=== PATIENT | female | born 1955 | race Caucasian/White ===

== ENCOUNTER 2018-02-21 19:10 | Emergency (ER) | payer OTHER ==
[2018-02-21] MEDS ORDERED: HYDROCODONE/APAP 5/325 MG TAB ONE (20:12)
[2018-02-21] MEDS ORDERED: ONDANSETRON 4 MG (ODT) TAB ONE (20:15)
--- NOTE | 2018-02-21 20:50 | RAD REPORT ---
EXAM DESCRIPTION: RAD - Wrist Right 3 View - 02/21/2018 8:14 pm CLINICAL HISTORY: Fall, wrist pain COMPARISON: None. FINDINGS: No gross fracture deformity seen. There is no dislocation or periosteal reaction noted. De generative cystic changes are seen in the carpal bones. No foreign body or other soft tissue abnormal ity. IMPRESSION: No gross fracture deformity seen.
--- NOTE | 2018-02-21 21:27 | EDPHYS ---
Physician Documentation [facility] Name: Jessica Latham Age: 62 yrs Sex: Female : 1955 Arrival Date: 02/21/2018 Time: 19:11 Bed 4 Private MD: ED Physician Beni Alexander HPI: 02/21 21:00 This 62 yrs old Female presents to ER via EMS with complaints of Fall Injury. pm1 21:00 Details of fall: The patient fell from an upright position, while standing. Onset: The pm1 symptoms/episode began/occurred just prior to arrival. Associated injuries: The patient sustained right wrist. Severity of symptoms: in the emergency department the symptoms are actually worse. The patient has not experienced similar symptoms in the past. The patient has not recently seen a physician. Patient fell while trying to kick a rodent and slipped. Patient with right wrist pain and splinted by EMS prior to arrival. Historical: - Allergies: 19:14 No Known Allergies; sv - Home Meds: 19:14 Aspirin Oral [Active]; unk blood thinner [Active]; sv - PMHx: 19:14 enlarged heart; fluid around heart; sv - Immunization history:: Adult Immunizations Last tetanus immunization: < 5 years ago Flu vaccine is up to date. - Social history:: Smoking status: unknown. - Ebola Screening: : Patient negative for fever greater than or equal to 101.5 degrees Fahrenheit, and additional compatible Ebola Virus Disease symptoms Patient denies exposure to infectious person Patient denies travel to an Ebola-affected area in the 21 days before illness onset. ROS: 21:00 Constitutional: Negative for fever, chills, and weight loss, Eyes: Negative for injury, pm1 pain, redness, and discharge, ENT: Negative for injury, pain, and discharge, Neck: Negative for injury, pain, and swelling, Cardiovascular: Negative for chest pain, palpitations, and edema, Respiratory: Negative for shortness of breath, cough, wheezing, and pleuritic chest pain, Abdomen/GI: Negative for abdominal pain, nausea, vomiting, diarrhea, and constipation, Back: Negative for injury and pain. 21:00 Skin: Negative for injury, rash, and discoloration, Neuro: Negative for headache, weakness, numbness, tingling, and seizure. 21:00 MS/extremity: Positive for pain, of the right wrist, Negative for deformity. Exam: 21:00 Constitutional: This is a well developed, well nourished patient who is awake, alert, pm1 and in no acute distress. Head/Face: Normocephalic, atraumatic. Eyes: Pupils equal round and reactive to light, extra-ocular motions intact. Lids and lashes normal. Conjunctiva and sclera are non-icteric and not injected. Cornea within normal limits. Periorbital areas with no swelling, redness, or edema. ENT: Nares patent. No nasal discharge, no septal abnormalities noted. Tympanic membranes are normal and external auditory canals are clear. Oropharynx with no redness, swelling, or masses, exudates, or evidence of obstruction, uvula midline. Mucous membranes moist. Neck: Trachea midline, no thyromegaly or masses palpated, and no cervical lymphadenopathy. Supple, full range of motion without nuchal rigidity, or vertebral point tenderness. No Meningismus. Chest/axilla: Normal chest wall appearance and motion. Nontender with no deformity. No lesions are appreciated. Cardiovascular: Regular rate and rhythm with a normal S1 and S2. No gallops, murmurs, or rubs. Normal PMI, no JVD. No pulse deficits. Respiratory: Lungs have equal breath sounds bilaterally, clear to auscultation and percussion. No rales, rhonchi or wheezes noted. No increased work of breathing, no retractions or nasal flaring. Abdomen/GI: Soft, non-tender, with normal bowel sounds. No distension or tympany. No guarding or rebound. No evidence of tenderness throughout. Back: No spinal tenderness. No costovertebral tenderness. Full range of motion. Skin: Warm, dry with normal turgor. Normal color with no rashes, no lesions, and no evidence of cellulitis. 21:00 Musculoskeletal/extremity: Extremities: grossly normal except: noted in the right wrist: tenderness. 21:00 Neuro: Orientation: is normal, Motor: is normal, moves all fours, strength is 5/5 in all extremities, Sensation: is normal, no obvious gross deficits. Vital Signs: 19:34 BP 114 / 79; Pulse 98; Resp 18; Temp 98.0; Pulse Ox 95% ; Weight 73.48 kg; Height 5 ft. tl3 5 in. (165.10 cm); Pain 10/10; 21:10 BP 116 / 76; Pulse 79; Resp 18; Pulse Ox 99% on R/A; Pain 0/10; ao 19:34 Body Mass Index 26.96 (73.48 kg, 165.10 cm) tl3 [place] Coma Score: 20:21 Eye Response: spontaneous(4). Verbal Response: oriented(5). Motor Response: obeys ao commands(6). Total: 15. Trauma Score (Adult): 20:21 Eye Response: spontaneous(1); Verbal Response: oriented(1); Motor Response: obeys ao commands(2); Systolic BP: > 89 mm Hg(4); Respiratory Rate: 10 to 29 per min(4); Iram Score: 15; Trauma Score: 12 Procedures: 22:00 Splinting: Splint applied to right wrist using wrist splint, applied by nurse. Examined pm1 by me, post splint application: neurovascular intact, 2+ distal pulses palpable, brisk capillary refill noted, Patient tolerated well. MDM: 19:51 Patient medically screened. pm1 21:26 Data reviewed: vital signs. Data interpreted: Pulse oximetry: on room air is 99 %. pm1 Interpretation: normal. Counseling: I had a detailed discussion with the patient and/or guardian regarding: the historical points, exam findings, and any diagnostic results supporting the discharge/admit diagnosis, radiology results, the need for outpatient follow up, a orthopedic surgeon, to return to the emergency department if symptoms worsen or persist or if there are any questions or concerns that arise at home. 02/21 19:17 Order name: Wrist Right 3 View XRAY; Complete Time: 20:55 tw4 02/21 20:55 Order name: Wrist Splint; Complete Time: 21:13 pm1 02/21 21:13 Order name: Sling; Complete Time: 21:14 ao Administered Medications: 20:15 Drug: [place] 5 mg-325 mg 1 tabs Route: PO; ao 21:14 Follow up: Response: No adverse reaction ao 20:15 Drug: Zofran 4 mg Route: PO; ao 21:13 Follow up: Response: No adverse reaction ao Disposition: 22:54 Co-signature as Attending Physician, Beni Alexander MD I agree with the assessment and tw4 plan of care. Disposition: 02/21/18 21:27 Discharged to Home. Impression: Unspecified sprain of right wrist. - Condition is Stable. - Discharge Instructions: Wrist Pain, Wrist Splint. - Prescriptions for Tylenol- Codeine #3 300-30 mg Oral Tablet - take 2 tablets by ORAL route every 6 hours As needed; 20 tablet. - Medication Reconciliation Form, Thank You Letter, Prescription Opioid Use form. - Follow up: Emergency Department; When: As needed; Reason: Worsening of condition. Follow up: John Hatch MD; When: 2 - 3 days; Reason: Recheck today's complaints, Continuance of care, Re-evaluation by your physician. - Problem is new. - Symptoms have improved. Signatures: Dispatcher [employer] EDElisa Manzano, RN RN Logan Lugo RN RN ao Trip Trammell, TRANSPORTATION PLANNING ENGINEER TRANSPORTATION PLANNING ENGINEER pm1 Beni Alexander MD MD tw4 Gorge Flores RN RN rv Corrections: (The following items were deleted from the chart) 21:34 21:27 02/21/2018 21:27 Discharged to Home. Impression: Unspecified sprain of right ao wrist. Condition is Stable. Forms are Medication Reconciliation Form, Thank You Letter, Antibiotic Education, Prescription Opioid Use. Follow up: Emergency Department; When: As needed; Reason: Worsening of condition. Follow up: John Hatch; When: 2 - 3 days; Reason: Recheck today's complaints, Continuance of care, Re-evaluation by your physician. Problem is new. Symptoms have improved. pm1
--- NOTE | 2018-02-21 21:27 | ER ---
Nurse's Notes [facility] Name: Jessica Latham Age: 62 yrs Sex: Female : 1955 Arrival Date: 02/21/2018 Time: 19:11 Bed 4 Private MD: Diagnosis: Unspecified sprain of right wrist Presentation: 02/21 19:07 Presenting complaint: EMS states: about 2-3 hours ago she was attempting to kick a sv rodent, lost her footing and fell onto her right side. right wrist deformity. EMS splinted pt. CMS and pulses +. Bp 112/78 RH 82 100% RA. Care prior to arrival: Splint applied. Mechanism of Injury: Fall from standing position. 19:07 Acuity: GABRIELA 4 sv 19:07 Method Of Arrival: EMS: [facility] sv 20:22 Transition of care: patient was not received from another setting of care. Onset of ao symptoms is unknown. Risk Assessment: Do you want to hurt yourself or someone else? Patient reports no desire to harm self or others. Initial Sepsis Screen: Does the patient meet any 2 criteria? No. Patient's initial sepsis screen is negative. Does the patient have a suspected source of infection? No. Patient's initial sepsis screen is negative. 20:22 Trauma event details: Injury occurred in the [facility]. ao Triage Assessment: 20:09 General: Appears in no apparent distress. uncomfortable, Behavior is calm, cooperative. rv Pain: Complains of pain in dorsal aspect of right forearm, right wrist, right hand and palmar aspect of right forearm Pain currently is 10 out of 10 on a pain scale. EENT: No signs and/or symptoms were reported regarding the EENT system. Neuro: Level of Consciousness is awake, alert, obeys commands, Oriented to person, place, time, situation. Cardiovascular: Capillary refill < 3 seconds. Respiratory: Airway is patent. GI: No signs and/or symptoms were reported involving the gastrointestinal system. : No signs and/or symptoms were reported regarding the genitourinary system. Derm: Skin is intact. Musculoskeletal: Reports pain in dorsal aspect of right forearm, right wrist, right hand and palmar aspect of right forearm. Injury Description: Abrasion sustained to lateral aspect of right knee and lateral aspect of right calf. Trauma Activation: Not Applicable Physician: ED Physician; Name: ; Notified At: ; Arrived At: Physician: General Surgeon; Name: ; Notified At: ; Arrived At: Physician: Radiology; Name: ; Notified At: ; Arrived At: Physician: Respiratory; Name: ; Notified At: ; Arrived At: Physician: Lab; Name: ; Notified At: ; Arrived At: Historical: - Allergies: 19:14 No Known Allergies; sv - Home Meds: 19:14 Aspirin Oral [Active]; unk blood thinner [Active]; sv - PMHx: 19:14 enlarged heart; fluid around heart; sv - Immunization history:: Adult Immunizations Last tetanus immunization: < 5 years ago Flu vaccine is up to date. - Social history:: Smoking status: unknown. - Ebola Screening: : Patient negative for fever greater than or equal to 101.5 degrees Fahrenheit, and additional compatible Ebola Virus Disease symptoms Patient denies exposure to infectious person Patient denies travel to an Ebola-affected area in the 21 days before illness onset. Screenin:34 Abuse screen: Denies threats or abuse. Tuberculosis screening: No symptoms or risk tl3 factors identified. 20:25 Nutritional screening: No deficits noted. Fall Risk Fall in past 12 months (25 points). ao Primary Survey: 20:05 A: Airway: patent. Breathing/Chest: Respiratory pattern: regular, Respiratory effort: ao spontaneous, unlabored, Breath sounds: clear, Chest inspection: symmetrical rise and fall of the chest. Circulation: Cardiac rhythm: sinus rhythm Heart tones present. Pulses: Skin color: pink, Skin temperature: warm. Disability Alert. 20:22 Reassessment Airway Airway Breathing/Chest Respiratory pattern Regular Circulation ao Heart rhythm Sinus rhythm Disability Alert. Assessment: 20:13 General: received patient ambulatory. with sling and bandage on his right arm after rv tripping at home. localizes pain (10/10).. 20:15 Pain: Complains of pain in dorsal aspect of right forearm, right wrist, right hand and rv palmar aspect of right forearm Pain currently is 10 out of 10 on a pain scale. Neuro: Level of Consciousness is awake, alert, obeys commands, Oriented to person, place, time, situation. Cardiovascular: Capillary refill < 3 seconds. Respiratory: Airway is patent. GI: No signs and/or symptoms were reported involving the gastrointestinal system. : No signs and/or symptoms were reported regarding the genitourinary system. EENT: No signs and/or symptoms were reported regarding the EENT system. Derm: Skin is intact. Musculoskeletal: Reports pain in dorsal aspect of right forearm, right wrist, right hand and palmar aspect of right forearm Pain is 10 out of 10 on a pain scale. 21:10 Reassessment: Patient appears in no apparent distress at this time. Patient and/or ao family updated on plan of care and expected duration. Pain level reassessed. Patient is alert, oriented x 3, equal unlabored respirations, skin warm/dry/pink. Vital Signs: 19:34 BP 114 / 79; Pulse 98; Resp 18; Temp 98.0; Pulse Ox 95% ; Weight 73.48 kg; Height 5 ft. tl3 5 in. (165.10 cm); Pain 10/10; 21:10 BP 116 / 76; Pulse 79; Resp 18; Pulse Ox 99% on R/A; Pain 0/10; ao 19:34 Body Mass Index 26.96 (73.48 kg, 165.10 cm) tl3 [place] Coma Score: 20:21 Eye Response: spontaneous(4). Verbal Response: oriented(5). Motor Response: obeys ao commands(6). Total: 15. Trauma Score (Adult): 20:21 Eye Response: spontaneous(1); Verbal Response: oriented(1); Motor Response: obeys ao commands(2); Systolic BP: > 89 mm Hg(4); Respiratory Rate: 10 to 29 per min(4); Iram Score: 15; Trauma Score: 12 ED Course: 19:11 Patient arrived in ED. sv 19:13 Triage completed. sv 19:51 Trip Trammell NP is PHCP. pm1 19:51 Beni Alexander MD is Attending Physician. pm1 20:10 X-ray completed. Portable x-ray completed in exam room. Patient tolerated procedure mh1 well. 20:11 Wrist Right 3 View XRAY In Process Unspecified. EDMS 20:22 Patient maintains SpO2 saturation greater than 95% on room air. Thermoregulation: warm ao blanket given to patient. 20:24 Logan Horner RN is Primary Nurse. ao 20:25 Arm band placed on right wrist. Patient placed in an exam room, on a stretcher, on ao pulse oximetry, Patient notified of wait time. 20:25 Patient has correct armband on for positive identification. Pulse ox on. NIBP on. ao 21:27 John Hatch MD is Referral Physician. pm1 21:33 No provider procedures requiring assistance completed. Patient did not have IV access ao during this emergency room visit. Administered Medications: 20:15 Drug: [place] 5 mg-325 mg 1 tabs Route: PO; ao 21:14 Follow up: Response: No adverse reaction ao 20:15 Drug: Zofran 4 mg Route: PO; ao 21:13 Follow up: Response: No adverse reaction ao Intake: 21:33 PO: 60ml (Water); Total: 60ml. ao Outcome: : Discharge ordered by MD. pm1 21:33 Discharged to home ao 21:33 Condition: stable 21:33 Discharge instructions given to patient, Instructed on discharge instructions, follow up and referral plans. Demonstrated understanding of instructions, follow-up care, medications, Prescriptions given X 1. 21:34 Patient's length of stay was not longer than 2 hours. ao 21:34 Patient left the ED. ao Signatures: Dispatcher [employer] EDElisa Manzano, RN RN Татьяна Bassett 1 Logan Horner RN RN ao Trip Trammell, CROW AUDITOR IN CHARGE pm1 Glory Pedroza RN RN tl3 Gorge Flores, BECCA RN rv Corrections: (The following items were deleted from the chart) 20:23 20:22 Trauma event details: Injury occurred in the [facility], ao ao
== END 2018-02-21 21:34 | disposition home or self-care (01) ==
LOC: ER 19:10
DX: S63.501A Unspecified sprain of right wrist, initial encounter (principal); W18.30XA Fall on same level, unspecified, initial encounter; Y93.89 Activity, other specified; Y92.9 Unspecified place or not applicable; Y99.9 Unspecified external cause status
CPT/HCPCS: 99284